=== PATIENT | female | born 1960 | race Caucasian/White ===

== ENCOUNTER 2023-10-25 13:33 | Observation (INO) ==
[2023-10-25 14:57] LABS: ABS Basophils 0.1 10^3/uL (0.0-0.1); ABS Eosinophils 0.1 10^3/uL (0.0-0.5); ABS Monocytes 0.5 10^3/uL (0.0-0.9); ABS Neutrophils 4.3 10^3/uL (1.5-7.6); ABS Nucleated RBC 0.01 10^3/ul; Hemoglobin 13.1 g/dL (11.5-14.3); Lymphocyte % 37.1 %; Mean Corpuscular Hemoglobin 32.7 pg (27-33); Mean Corpuscular Hgb Conc 34.4 g/dL (31-36); Mean Platelet Volume 9.3 fL (7.5-11.2); Nucleated Red Blood Cells % 0.1 %/100WBC (0.0-0.8); Platelet Count 200 10^3/uL (150-450); Red Cell Distribution Width 13.5 % (12-17)
[2023-10-25 15:54] LABS: Albumin 3.7 g/dL (3.2-5.2); Albumin/Globulin Ratio 1.9 (1-3); Calcium 8.2 mg/dL (8.6-10.3); Creatinine, Serum 0.72 mg/dL (0.51-0.95); Potassium 3.5 mmol/L (3.5-5.0); Total Bilirubin 0.3 mg/dL (0.2-1.0); Total Protein 5.7 g/dL (6.4-8.9); eGFR CKD-EPI 93.3 (>60)
[2023-10-25] MEDS ORDERED: Dextrose 50% Syringe 50 ml 25 GM/50 ML SYRINGE IV PUSH PRN (17:36)
[2023-10-25 18:29] LABS: High Sensitivity Troponin 1 Hr 4 pg/mL (<15)
[2023-10-25] MEDS ORDERED: Nicotine GUM 2MG FRUIT FLAVOR PO PRN (18:57)
[2023-10-25] MEDS: Enoxaparin 40 MG/0.4 ML SYR SUBCUT SCH (20:06)
[2023-10-25] MEDS: Insulin GLARGINE 100 un/ml 10 ml VIAL SUBCUT SCH (20:20)
[2023-10-26] MEDS: CMCS: LINACLOTIDE 72 MCG CAP (NF) PO SCH (08:15)
[2023-10-26 09:18] LABS: Calcium 8.7 mg/dL (8.6-10.3); Creatinine, Serum 0.74 mg/dL (0.51-0.95); Magnesium 1.8 mg/dL (1.9-2.7); Potassium 3.9 mmol/L (3.5-5.0); eGFR CKD-EPI 90.3 (>60)
[2023-10-26] MEDS: Nicotine PATCH 14 MG/24 HR PATCH TRANSDERM SCH (10:20)
[2023-10-26 14:12] VITALS: BP 124/56
== END 2023-10-26 16:04 | disposition home or self-care (01) ==
LOC: ED 13:33 → EDHOLD 13:33 → SUATTDRO 15:57 → MEDTELE 18:06
PROVIDERS: ADMIT Internal Medicine; ATTEND Internal Medicine